=== PATIENT | female | born 1980 | race Two or more races ===

== ENCOUNTER 2018-03-04 23:47 | Emergency (ER) | payer MEDICAID ==
[~2018-03-04] VITALS: Ht 162.6 cm; Wt 82.0 kg
[~2018-03-04 23:47] MED LIST: CEPH500C2
[2018-03-05] MEDS ORDERED: ONDANSETRON HCL 4MG/2ML VIAL IV STA (02:15)
[2018-03-05 02:30] LABS: CLARITY URINE CLEAR (CLEAR); COLOR URINE YELLOW (YELLOW); KETONES URINE TRACE (NEGATIVE); LEUKOCYTE ESTERASE URINE NEGATIVE (NEGATIVE); NITRITE URINE NEGATIVE (NEGATIVE); OCCULT BLOOD URINE NEGATIVE (NEGATIVE); PH URINE 5.5 (4.5-8.0); PROTEIN URINE NEGATIVE (NEGATIVE); SPECIFIC GRAVITY URINE 1.032 (1.005-1.030)
[2018-03-05 02:36] LABS: BASOPHILS % 0.4 % (0.0-2.0); EOSINOPHILS % 2.7 % (0.0-5.0); HEMATOCRIT. 39.3 % (36.0-48.0); HEMOGLOBIN. 13.3 g/dL (12.0-16.0); MEAN CORPUSCULAR HEMOGLOBIN 30.4 pg (28.0-32.0); MEAN CORPUSCULAR VOLUME 89.7 fL (81.0-99.0); MONOCYTES % 7.5 % (2.0-8.0); NEUTROPHILS % 57.4 % (40.0-76.0); PLATELET 266 x1000/uL (130-400); RED BLOOD CELL COUNT 4.38 mill/uL (4.2-5.4); RED CELL DISTRIBUTION WIDTH 13.8 % (11.6-14.6)
[2018-03-05 02:45] LABS: CHLORIDE 106 mEq/L (98-107); PROTHROMBIN TIME 10.1 sec (9.4-11.6)
[2018-03-05 06:22] VITALS: BP 150/80
== END 2018-03-05 06:36 | disposition home or self-care (01) ==
LOC: ER 23:47 → CANBEDREQ 03-05 08:07
DX: D25.9 Leiomyoma of uterus, unspecified (principal); R19.7 Diarrhea, unspecified
CPT/HCPCS: 36415; 74176; 76830; 76856; 80053; 81003; 81025; 83690; 85025; 85610; 96374; 99285; J2405; Z7610